=== PATIENT | male | born 1995 | race Caucasian/White ===

== ENCOUNTER 2016-06-23 00:18 | Emergency (ER) | payer SELFPAY ==
[~2016-06-23] VITALS: Ht 167.6 cm; Wt 68.0 kg
[2016-06-23] MEDS ORDERED: LORAZEPAM INJ 2 MG/ML VIAL ONE (00:50)
[2016-06-23] MEDS ORDERED: LORAZEPAM INJ 2 MG/ML VIAL IM ONE (02:30)
[2016-06-23 05:55] VITALS: BP 124/71
== END 2016-06-23 05:45 | disposition home or self-care (01) ==
LOC: ER 00:22
DX: F10.129 Alcohol abuse with intoxication, unspecified (principal); R79.89 Other specified abnormal findings of blood chemistry
CPT/HCPCS: 82962; 96372; 99283; A4606; J2060; Z7610